=== PATIENT | male | born 2005 | race Caucasian/White ===

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

== ENCOUNTER 2024-02-16 08:28 | Outpatient (CLI) | payer OTHER, SELFPAY ==
--- NOTE | 2024-02-16 | ECG_ITS ---
Test Date: 2024-02-16 09:20:56 Measurements Intervals [place] Rate: 66 P: 54 [place]: 156 QRS: 63 QRSD: 102 T: 50 QT: 381 QTc: 399 Interpretive Statements SINUS RHYTHM NORMAL ELECTROCARDIOGRAM No previous ECG available for comparison Electronically Signed On 02-16-2024 09:45:26 CDT by Timmy Diallo M.D.
[2024-02-16 09:05] LABS: Basophils Percent Auto 0.5 % (0.2-1.2); Eosinophils Absolute Auto 0.1 K/mm3 (0-0.3); Eosinophils Percent Auto 1.3 % (0-4.4); Hematocrit 44.9 % (42.0-52.0); Hemoglobin 15.7 g/dL (14.0-18.0); Immature Granulocyte Absolute 0.01 K/mm3 (0.00-0.031); Immature Granulocyte Percent A 0.2 % (0-0.5); Lymphocytes Percent Auto 32.9 % (18.3-44.2); Mean Corpuscular Hemoglobin 30.5 pg (26-34); Mean Corpuscular Volume 87.2 fl (80-100); Mean Platelet Volume 10.5 fl (7.4-10.4); Monocytes Absolute Auto 0.5 K/mm3 (0.1-0.6); Monocytes Percent Auto 7.2 % (2.6-8.5); Neutrophils Absolute Auto 3.7 K/mm3 (1.3-6.7); Neutrophils Percent Auto 57.9 % (45.5-73.1); Platelet Count Result 240 k/mm3 (150-375); Red Blood Count 5.15 M/mm3 (4.6-6.20); Red Cell Distribution Width 12.8 % (11.5-14.5); White Blood Count 6.4 K/mm3 (4.5-10.0)
[2024-02-16 09:12] LABS: Alanine Aminotransferase 17 U/L (6-50); Albumin Level 4.8 g/dL (3.5-5.1); Alkaline Phosphatase 70 U/L (38-126); Anion Gap 10 mmol/L (4-12); Aspartate Amino Transferase 24 U/L (17-59); Bilirubin,Total 0.9 mg/dL (0.2-1.3); Blood Urea Nitrogen 23 mg/dL (9-20); Calcium 9.1 mg/dL (8.4-10.2); Carbon Dioxide 28 mmol/L (22-30); Chloride 103 mmol/L (98-107); Cholesterol 122 mg/dL (0-200); Estimated Glomerular Filt Rate > 60; Glucose 92 mg/dL (65-110); HDL Direct 47 mg/dL; Sodium 141 mmol/L (137-145); Triglycerides 45 mg/dL (<150)
[2024-02-16 09:21] LABS: LDL Cholesterol Direct 63 mg/dL
[2024-02-16 09:43] LABS: Total Triiodothyronine (T3) 1.48 NG/ML (0.97-1.69)
[2024-02-16 10:13] LABS: Free T4 Free Thyroxine 1.26 ng/mL (0.78-2.19)
== END 2024-02-16 08:29 | disposition home or self-care (01) ==
PROVIDERS: PCP Registered Nurse; Visit Provider Registered Nurse
DX: R07.9 Chest pain, unspecified (principal); E78.5 Hyperlipidemia, unspecified; R53.83 Other fatigue
CPT/HCPCS: 36415; 80053; 80061; 84439; 84443; 84480; 85025; 93005

== ENCOUNTER 2024-04-04 09:37 | Outpatient (CLI) | payer OTHER, SELFPAY ==
--- NOTE | 2024-04-04 10:05 | EST_ITS ---
Patient Info Name: Kian Ruiz Age: 19 years : 2005 Gender: Male Ht: 70 in Wt: 185 lbs BSA: 2.05 m2 HR: 70 bpm BP: 142 / 97 mmHg Heart Rhythm: Sinus Rhythm Exam Date: 04/04/2024 10:14 AM Exam Location: Echo Lab Patient Status: Outpatient Admit Date: 04/04/2024 Staff Ordering Physician: Chino Matt DO Attending Provider: Chino Matt DO Exercise Technologist: Khalida Piña CT Exercise Physician: Chino Matt DO Exam Type: CA stress test treadmill Study Info Indications R07.9 - Chest pain, unspecified A treadmill exercise stress test was performed. Summary 1. 1. Negative [facility]adio exercise stress test for ischemic ST changes by ECG criteria. 2. 2. Good functional capacity, achieving 12 METs of workload. 3. 3. Appropriate HR response to exercise. 4. 4. Appropriate HR recovery at 1 minute post exercise. 5. 5. No imaging with stress testing. 6. 6. Patient informed of the above results. Protocol: [facility]adio Stress ECG Details Stage: REST Duration (min): 0 min : 52 sec Speed (mph): 0.0 Grade (%): 0 HR (bpm): 87 SBP (mmHg): 142 DBP (mmHg): 97 METS: --- Stage: REST Duration (min): 4 min : 58 sec Speed (mph): 0.0 Grade (%): 0 HR (bpm): 89 SBP (mmHg): 142 DBP (mmHg): 97 METS: --- Stage: STAGE 1 Duration (min): 1 min : 0 sec Speed (mph): 1.7 Grade (%): 10 HR (bpm): 93 SBP (mmHg): 142 DBP (mmHg): 97 METS: --- Stage: STAGE 1 Duration (min): 2 min : 0 sec Speed (mph): 1.7 Grade (%): 10 HR (bpm): 97 SBP (mmHg): 142 DBP (mmHg): 97 METS: --- Stage: STAGE 1 Duration (min): 3 min : 0 sec Speed (mph): 1.7 Grade (%): 10 HR (bpm): 103 SBP (mmHg): 161 DBP (mmHg): 79 METS: --- Stage: STAGE 2 Duration (min): 1 min : 0 sec Speed (mph): 2.5 Grade (%): 12 HR (bpm): 107 SBP (mmHg): 161 DBP (mmHg): 79 METS: --- Stage: STAGE 2 Duration (min): 2 min : 0 sec Speed (mph): 2.5 Grade (%): 12 HR (bpm): 107 SBP (mmHg): 172 DBP (mmHg): 76 METS: --- Stage: STAGE 2 Duration (min): 3 min : 0 sec Speed (mph): 2.5 Grade (%): 12 HR (bpm): 114 SBP (mmHg): 172 DBP (mmHg): 76 METS: --- Stage: STAGE 3 Duration (min): 1 min : 0 sec Speed (mph): 3.4 Grade (%): 14 HR (bpm): 123 SBP (mmHg): 167 DBP (mmHg): 63 METS: --- Stage: STAGE 3 Duration (min): 2 min : 0 sec Speed (mph): 3.4 Grade (%): 14 HR (bpm): 127 SBP (mmHg): 167 DBP (mmHg): 63 METS: --- Stage: STAGE 3 Duration (min): 3 min : 0 sec Speed (mph): 3.4 Grade (%): 14 HR (bpm): 131 SBP (mmHg): 167 DBP (mmHg): 63 METS: --- Stage: STAGE 4 Duration (min): 1 min : 0 sec Speed (mph): 4.2 Grade (%): 16 HR (bpm): 153 SBP (mmHg): 160 DBP (mmHg): 64 METS: --- Stage: STAGE 4 Duration (min): 2 min : 0 sec Speed (mph): 4.2 Grade (%): 16 HR (bpm): 160 SBP (mmHg): 155 DBP (mmHg): 60 METS:
== END 2024-04-04 09:38 | disposition home or self-care (01) ==
LOC: ANHCARD 09:40
PROVIDERS: PCP Registered Nurse; Visit Provider Internal Medicine Cardiovascular Disease
DX: R07.9 Chest pain, unspecified (principal)
CPT/HCPCS: 93017